=== PATIENT | female | born 2000 | race Hispanic/Latino ===

== ENCOUNTER 2019-05-04 23:10 | Inpatient (IN) | payer MEDICAID, OTHER ==
[~2019-05-04] VITALS: Ht 162.6 cm; Wt 60.3 kg
[2019-05-04 23:27] LABS: BILIRUBIN,URINE Negative (NEGATIVE); COLOR,URINE Yellow (YELLOW); GLUCOSE, URINE (UA) Negative (NEGATIVE); KETONES,URINE Negative (NEGATIVE); LEUKOCYTE ESTERASE ,URINE Large (NEGATIVE); NITRATE,URINE Negative (NEGATIVE); OCCULT BLOOD,URINE Small (NEGATIVE); PH,URINE 6.5 (5.0-8.0); PROTEIN,URINE Negative (NEGATIVE)
[2019-05-04 23:28] LABS: HCG,QUAL RESULT NEGATIVE (NEGATIVE)
[2019-05-04 23:29] LABS: APPEARANCE,URINE SLIGHTLY CLOUDY (CLEAR)
[2019-05-04 23:40] LABS: BACTERIA,URINE Few /HPF (None Seen); WBC,URINE 51-100 /HPF (0-1)
[2019-05-05 00:02] LABS: BASOPHILS % (AUTO) 0.2 % (0.0-5.0); EOSINOPHILS % (AUTO) 0.2 % (0.0-8.0); LYMPHOCYTES % (AUTO) 8.6 % (21.0-51.0); MEAN CORPUSCULAR HGB CONC 33.6 g/dL (32.0-36.0); MEAN CORPUSCULAR VOLUME 83.1 fL (80-100); MONOCYTES % (AUTO) 10.5 % (3.0-13.0); NEUTROPHILS % (AUTO) 80.5 % (40.0-77.0); PLATELET COUNT (AUTO) 191 K/uL (130-400); RED BLOOD CELL COUNT(AUTO) 4.09 MIL/uL (4.00-5.50); RED CELL DISTRIBUTION WIDTH 14.6 % (11.0-15.5); WHITE BLOOD COUNT (AUTO) 13.1 K/uL (4.8-10.8)
[2019-05-05 00:10] LABS: CREATININE 1.1 mg/dL (0.5-1.5); POTASSIUM 3.6 mmol/L (3.5-5.1)
[2019-05-05] MEDS ORDERED: KETOROLAC TROMETHAMINE 15MG/ML ONE (00:12)
[2019-05-05] MEDS ORDERED: MORPHINE SULFATE 4 MG/1ML SYG ONE (00:12)
[2019-05-05 00:15] LABS: ALBUMIN 3.3 g/dL (3.5-5.0); BILIRUBIN,TOTAL 0.6 mg/dL (0.2-1.0); TOTAL PROTEIN, SERUM 7.3 g/dL (6.0-8.3)
[2019-05-05] MEDS ORDERED: SODIUM CHLORIDE 0.9% 1000ML 1,000 ML IV SCH (01:38)
[2019-05-05] MEDS ORDERED: ACETAMINOPHEN EXTRA STRENGTH 500 MG TABLET ONE (01:39)
[2019-05-05] MEDS ORDERED: HYDROMORPHONE 1 MG/1 ML AMP ONE (01:39)
[2019-05-05] MEDS ORDERED: SODIUM CHLORIDE 0.9% 1000ML 1,000 ML IV ONE (01:40)
[2019-05-05] MEDS ORDERED: ACETAMINOPHEN 325 MG TAB PO PRN (01:45)
[2019-05-05] MEDS: PROMETHAZINE HCL 25 MG/ML 1ML AMPULE IVPB SCH ×3 (01:45→17:45)
[2019-05-05] MEDS ORDERED: MORPHINE SULFATE 2 MG/ML 1ML SYG IV PRN (01:45)
[2019-05-05] MEDS ORDERED: CEFTRIAXONE SODIUM 1 GM ONE (03:38)
[2019-05-05 04:50] VITALS: BP 108/71
[2019-05-05 08:00] VITALS: BP 95/49
[2019-05-05] MEDS: FAMOTIDINE/PF 20 MG/2 ML VIAL IV SCH ×2 (08:30→21:06)
[2019-05-05] MEDS: MORPHINE SULFATE 4 MG/1ML SYG IV PRN ×4 (08:30→22:43)
--- NOTE | 2019-05-05 08:37 | NUR ---
C/O OF RT. FLANK PAIN, MEDICATED NOW.
[2019-05-05 09:39] LABS: HEMATOCRIT 30.6 % (36-48); MEAN CORPUSCULAR HEMOGLOBIN 27.7 pg (27.0-33.0); MEAN CORPUSCULAR HGB CONC 33.1 g/dL (32.0-36.0); MEAN CORPUSCULAR VOLUME 83.7 fL (80-100); PLATELET COUNT (AUTO) 168 K/uL (130-400); RED BLOOD CELL COUNT(AUTO) 3.65 MIL/uL (4.00-5.50); RED CELL DISTRIBUTION WIDTH 14.7 % (11.0-15.5); WHITE BLOOD COUNT (AUTO) 11.9 K/uL (4.8-10.8)
[2019-05-05 09:47] LABS: CREATININE 0.9 mg/dL (0.5-1.5); NEUTROPHILS % (AUTO) 79.2 % (40.0-77.0); POTASSIUM 3.9 mmol/L (3.5-5.1)
[2019-05-05 09:48] LABS: BASOPHILS % (AUTO) 0.3 % (0.0-5.0); EOSINOPHILS % (AUTO) 0.3 % (0.0-8.0); LYMPHOCYTES % (AUTO) 6.6 % (21.0-51.0); MONOCYTES % (AUTO) 13.6 % (3.0-13.0)
[2019-05-05 11:49] VITALS: BP 91/51
[2019-05-05] MEDS ORDERED: ONDANSETRON HCL 4 MG/2 ML VIAL IVP PRN (12:00)
[2019-05-05] MEDS: SODIUM CHLORIDE 0.9% 1000ML 1,000 ML IV SCH ×2 (12:21→22:42)
[2019-05-05] MEDS: ACETAMINOPHEN 325 MG TAB PO PRN (16:51)
[2019-05-05 17:02] VITALS: BP 109/45
--- NOTE | 2019-05-05 17:20 | NUR ---
DCP CM met with pt discussed dc plans. Pt is independent, lives at home with mother. Denies any equipments/services. Pt feels safe to go back home, mother able to assist with transportation and needs as necessary. DC plan to home once stable. CM to cont to follow up. Addendum: 05/05/19 at 1721 by MEME VARMA LVN CM Amended: Links added.
[2019-05-05 20:00] VITALS: BP 104/50
[2019-05-06] VITALS: BP 107/70
[2019-05-06] MEDS: PROMETHAZINE HCL 25 MG/ML 1ML AMPULE IVPB SCH ×3 (01:45→17:45)
[2019-05-06] MEDS: CEFTRIAXONE SODIUM 1 GM IV SCH ×2 (02:57→03:00)
[2019-05-06 04:00] VITALS: BP 123/62
[2019-05-06] MEDS: MORPHINE SULFATE 4 MG/1ML SYG IV PRN ×2 (07:44→12:33)
[2019-05-06] MEDS: SODIUM CHLORIDE 0.9% 1000ML 1,000 ML IV SCH ×3 (07:44→19:25)
[2019-05-06 08:00] VITALS: BP 123/66
[2019-05-06] MEDS: FAMOTIDINE/PF 20 MG/2 ML VIAL IV SCH ×2 (10:08→21:22)
[2019-05-06 12:00] VITALS: BP 116/77
[2019-05-06] MEDS: TRAMADOL HCL 50 MG TABLET PO SCH ×2 (13:30→21:22)
[2019-05-06] MEDS ORDERED: HYDROCODONE/ACETAMINOPHEN 5/325 MG TAB PO PRN (13:30)
[2019-05-06] MEDS: LEVOFLOXACIN 500 MG/D5W 100 ML 100 ML IV SCH (14:47)
[2019-05-06 16:00] VITALS: BP 119/63
[2019-05-06] MEDS: ACETAMINOPHEN 325 MG TAB PO PRN (19:23)
[2019-05-06 20:49] VITALS: BP 135/77
[2019-05-07] VITALS (7 sets, daily range): BP systolic 117–133; BP diastolic 63–79
[2019-05-07] MEDS: TRAMADOL HCL 50 MG TABLET PO SCH ×4 (01:30→19:30)
[2019-05-07] MEDS: PROMETHAZINE HCL 25 MG/ML 1ML AMPULE IVPB SCH ×3 (01:45→16:42)
[2019-05-07] MEDS: CEFTRIAXONE SODIUM 1 GM IV SCH (03:22)
[2019-05-07] MEDS: SODIUM CHLORIDE 0.9% 1000ML 1,000 ML IV SCH ×2 (03:26→15:00)
[2019-05-07 04:40] LABS: HEMATOCRIT 29.5 % (36-48); MEAN CORPUSCULAR HEMOGLOBIN 27.7 pg (27.0-33.0); MEAN CORPUSCULAR HGB CONC 33.7 g/dL (32.0-36.0); MEAN CORPUSCULAR VOLUME 82.1 fL (80-100); PLATELET COUNT (AUTO) 195 K/uL (130-400); RED BLOOD CELL COUNT(AUTO) 3.59 MIL/uL (4.00-5.50); RED CELL DISTRIBUTION WIDTH 14.7 % (11.0-15.5); WHITE BLOOD COUNT (AUTO) 8.8 K/uL (4.8-10.8)
[2019-05-07 04:46] LABS: CREATININE 0.8 mg/dL (0.5-1.5); POTASSIUM 3.5 mmol/L (3.5-5.1)
[2019-05-07] MEDS: FAMOTIDINE/PF 20 MG/2 ML VIAL IV SCH ×2 (09:56→21:19)
[2019-05-07] MEDS: LEVOFLOXACIN 500 MG/D5W 100 ML 100 ML IV SCH (12:58)
[2019-05-08] MEDS: SODIUM CHLORIDE 0.9% 1000ML 1,000 ML IV SCH (01:28)
[2019-05-08] MEDS: TRAMADOL HCL 50 MG TABLET PO SCH ×2 (01:30→06:44)
[2019-05-08] MEDS: PROMETHAZINE HCL 25 MG/ML 1ML AMPULE IVPB SCH ×2 (01:36→08:53)
[2019-05-08] MEDS: CEFTRIAXONE SODIUM 1 GM IV SCH (02:59)
[2019-05-08 04:28] VITALS: BP 122/62
[2019-05-08 05:16] LABS: BASOPHILS % (AUTO) 0.5 % (0.0-5.0); EOSINOPHILS % (AUTO) 4.2 % (0.0-8.0); HEMATOCRIT 29.9 % (36-48); LYMPHOCYTES % (AUTO) 27.7 % (21.0-51.0); MEAN CORPUSCULAR HEMOGLOBIN 28.1 pg (27.0-33.0); MEAN CORPUSCULAR VOLUME 82.5 fL (80-100); MONOCYTES % (AUTO) 13.2 % (3.0-13.0); NEUTROPHILS % (AUTO) 54.4 % (40.0-77.0); PLATELET COUNT (AUTO) 218 K/uL (130-400); RED BLOOD CELL COUNT(AUTO) 3.62 MIL/uL (4.00-5.50); RED CELL DISTRIBUTION WIDTH 14.5 % (11.0-15.5); WHITE BLOOD COUNT (AUTO) 7.3 K/uL (4.8-10.8)
[2019-05-08 05:25] LABS: CREATININE 0.7 mg/dL (0.5-1.5); POTASSIUM 3.6 mmol/L (3.5-5.1)
[2019-05-08 07:30] VITALS: BP 111/60
[2019-05-08] MEDS ORDERED: TRAMADOL HCL 50 MG TABLET PO PRN (07:45)
[2019-05-08] MEDS ORDERED: LEVO500T2 PO ×3 (07:49→07:56)
[2019-05-08] MEDS: FAMOTIDINE/PF 20 MG/2 ML VIAL IV SCH (08:50)
--- NOTE | 2019-05-08 10:03 | NUR ---
Discharge teaching completed in the room with pt. Emphasis on dx UTI and pyelonephritis, s/s to monitor for, when to seek emergency care vs dial 911. Attempted to make follow up appts with Dr. Putnam but no answer at the office. Pt rec'd call pb while discharge teaching was in progress, and appt was set for 05/11 @ 8:15 am. Written rx for Levaquin given to pt. Educated regarding purpose, route, frequency, and duration of treatment, as well as side effects and adverse effects. PIV removed, tip intact. Dressed with sterile 2x2 and band aid after hemostasis. Pt escorted to [facility] by [facility] staff for transport home via private vehicle. Pt in stable condition at time of discharge.
[2019-05-09] MEDS ORDERED: LEVOFLOXACIN 500 MG PO SCH (09:00)
== END 2019-05-08 10:05 | disposition home or self-care (01) | DRG 690 ==
LOC: EDH 23:10 → EDHIP 23:11 → 3BH 05-05 01:37
PROVIDERS: ADMIT Internal Medicine; ATTEND Internal Medicine
DX: N13.6 Pyonephrosis (principal); K82.4 Cholesterolosis of gallbladder
CPT/HCPCS: 36415; 71046; 76705; 80048; 80053; 81001; 81025; 83690; 85025; 85027; 87040; 87088; G0378; J0696; J1170; J1885; J1956; J2270; J2405; J3490; J7030

== ENCOUNTER 2020-05-25 19:54 | Inpatient (IN) | payer MEDICAID ==
[~2020-05-25] VITALS: Ht 162.6 cm; Wt 73.5 kg
[~2020-05-25 19:54] MED LIST: LEVO500T2 PO
[2020-05-25] MEDS ORDERED: LACTATED RINGERS 1000ML 1,000 ML IV PRN (20:50)
[2020-05-25] MEDS ORDERED: OXYTOCIN-LR 20 UNITS/1000 ML 1,000 ML IV SCH (21:00)
[2020-05-25 21:17] LABS: HEMATOCRIT 33.7 % (36-48); MEAN CORPUSCULAR HEMOGLOBIN 27.4 pg (27.0-33.0); MEAN CORPUSCULAR HGB CONC 33.2 g/dL (32.0-36.0); MEAN CORPUSCULAR VOLUME 82.4 fL (80-100); RED BLOOD CELL COUNT(AUTO) 4.09 MIL/uL (4.00-5.50); RED CELL DISTRIBUTION WIDTH 14.3 % (11.0-15.5); WHITE BLOOD COUNT (AUTO) 10.7 K/uL (4.8-10.8)
[2020-05-25 21:27] LABS: APPEARANCE,URINE Cloudy (CLEAR); BILIRUBIN,URINE Negative (NEGATIVE); COLOR,URINE Yellow (YELLOW); GLUCOSE, URINE (UA) Negative (NEGATIVE); KETONES,URINE Trace mg/dL (NEGATIVE); LEUKOCYTE ESTERASE ,URINE Large (NEGATIVE); NITRATE,URINE Negative (NEGATIVE); OCCULT BLOOD,URINE Negative (NEGATIVE); PH,URINE 6.5 (5.0-8.0); PROTEIN,URINE Trace mg/dL (NEGATIVE)
[2020-05-25 21:40] LABS: BACTERIA,URINE Many /HPF (None Seen); MUCUS,URINE Few LPF (None Seen); RBC,URINE 0-1 /HPF (0-1); SQUAMOUS EPITHELIAL CELL,UR 0-2 /HPF (0-2)
[2020-05-26] MEDS ORDERED: LACTATED RINGERS 500 ML 500 ML IV PRN (10:00)
[2020-05-26] MEDS ORDERED: EPHEDRINE SULFATE 50 MG/ML AMPULE IVP PRN (10:00)
[2020-05-26] MEDS ORDERED: DINOPROSTONE 10 MG VAGINAL SUPP VG SCH (10:00)
[2020-05-26] MEDS ORDERED: ROPIVACAINE 0.2% 100ML VIAL 100 ML EP SCH (10:00)
[2020-05-26] MEDS ORDERED: NALOXONE HCL 0.4 MG/1 ML ML IV PRN (10:00)
[2020-05-26] MEDS: MEPERIDINE-PF 50 MG/ML SYG IVP PRN (16:46)
[2020-05-26] MEDS: PROMETHAZINE HCL 25 MG/ML 1ML AMPULE IM PRN (16:46)
[2020-05-27] MEDS ORDERED: OXYTOCIN-LR 20 UNITS/1000 ML 1,000 ML IV ONE ×2 (00:26→11:10)
[2020-05-27] MEDS ORDERED: OXYTOCIN 10 USP UNITS/ML 20 UNIT in LACTATED RINGERS 1000ML 1,000 ML IV SCH (00:30)
[2020-05-27] MEDS: PROMETHAZINE HCL 25 MG/ML 1ML AMPULE IM PRN (03:10)
[2020-05-27] MEDS: MEPERIDINE-PF 50 MG/ML SYG IVP PRN (03:11)
[2020-05-27] MEDS ORDERED: FENTANYL CITRATE PF 50 MCG/1 ML 2ML VIAL ONE (07:50)
[2020-05-27] MEDS ORDERED: CARBOPROST TROMETHAMINE 250 MCG/ML AMP IM ONE (10:43)
[2020-05-27] MEDS ORDERED: MISOPROSTOL 200 MCG TABLET ONE (10:43)
[2020-05-27] MEDS ORDERED: MISOPROSTOL 200 MCG TABLET VG SCH (10:45)
[2020-05-27] MEDS ORDERED: CARBOPROST TROMETHAMINE 250 MCG/ML AMP IM SCH (10:45)
[2020-05-27 11:50] LABS: BASOPHILS % (AUTO) 0.3 % (0.0-5.0); EOSINOPHILS % (AUTO) 0.1 % (0.0-8.0); HEMATOCRIT 29.1 % (36-48); LYMPHOCYTES % (AUTO) 8.3 % (21.0-51.0); MEAN CORPUSCULAR HGB CONC 30.9 g/dL (32.0-36.0); MEAN CORPUSCULAR VOLUME 87.4 fL (80-100); MONOCYTES % (AUTO) 7.5 % (3.0-13.0); NEUTROPHILS % (AUTO) 82.6 % (40.0-77.0); PLATELET COUNT (AUTO) 276 K/uL (130-400); RED BLOOD CELL COUNT(AUTO) 3.33 MIL/uL (4.00-5.50); RED CELL DISTRIBUTION WIDTH 14.6 % (11.0-15.5); WHITE BLOOD COUNT (AUTO) 17.4 K/uL (4.8-10.8)
[2020-05-27] MEDS ORDERED: IBUPROFEN 600 MG TABLET ONE (12:42)
[2020-05-27] MEDS ORDERED: AMMONIA 1 EA AMP IH ONE (13:11)
[2020-05-27 13:35] VITALS: BP 128/80
[2020-05-27] MEDS ORDERED: PNV1TABL17 PO (13:53)
[2020-05-27] MEDS ORDERED: ACETAMINOPHEN-CODEINE 300/30MG TAB PO PRN (14:00)
[2020-05-27] MEDS ORDERED: BENZOCAINE/LANOLIN/ALOE VERA 60 ML AEROSOL TP PRN (14:00)
[2020-05-27] MEDS ORDERED: DIPH,PERTUSS(ACELL),TET VAC/PF 0.5 ML VIAL IM PRN (14:00)
[2020-05-27] MEDS ORDERED: WITCH HAZEL 1 PAD TP PRN (14:00)
[2020-05-27] MEDS ORDERED: ACETAMINOPHEN 325 MG TAB PO PRN (14:00)
--- NOTE | 2020-05-27 14:00 | NUR ---
ASSISTED PATIENT TO RESTROOM. PATIENT WAS ABLE TO VOID. INSTRUCTED AND ASSISTED WITH PERICARE. PATIENT STATED SHE FELT "A LITTLE DIZZY" WHEN AMBULATING BACK TO BED. ADVISED PATIENT TO CALL FOR ASSISTANCE WHEN NEEDING TO AMBULATE.
--- NOTE | 2020-05-27 14:40 | NUR ---
PATIENT WAS AMBULATING BACK FROM THE RESTROOM WITH SIGNIFICANT OTHER'S ASSISTANCE. PATIENT STATED THERE NO CHANGE IN DIZZINESS AND PREFERRED SIGNIFICANT OTHER'S ASSISTANCE. INFORMED PATIENT ON INJURY PREVENTION AND IMPORTANCE ON CALLING WHEN NEEDING ASSISTANCE TO AMBULATE. EDUCATED PATIENT ON EMERGENCY CALL CORDS LOCATED IN THE RESTROOM. PATIENT VERBALIZED UNDERSTANDING AND STATED SHE FEELS OKAY TO AMBULATE. CALL LIGHT LEFT IN REACH.
[2020-05-27 16:30] VITALS: BP 127/87
[2020-05-27 19:30] VITALS: BP 134/75
[2020-05-27] MEDS: DOCUSATE SODIUM 100 MG CAP PO SCH (20:56)
[2020-05-27 21:07] LABS: HEPATITIS Bs ANTIGEN SCREEN P Negative (Negative)
[2020-05-27] MEDS: IBUPROFEN 600 MG TABLET PO PRN (23:21)
[2020-05-27 23:25] VITALS: BP 127/72
[2020-05-28] VITALS (12 sets, daily range): BP systolic 113–134; BP diastolic 58–80
[2020-05-28 06:53] LABS: MEAN CORPUSCULAR HEMOGLOBIN 27.5 pg (27.0-33.0); MEAN CORPUSCULAR HGB CONC 32.6 g/dL (32.0-36.0); MEAN CORPUSCULAR VOLUME 84.3 fL (80-100); PLATELET COUNT (AUTO) 187 K/uL (130-400); RED BLOOD CELL COUNT(AUTO) 2.04 MIL/uL (4.00-5.50); RED CELL DISTRIBUTION WIDTH 14.7 % (11.0-15.5); WHITE BLOOD COUNT (AUTO) 11.2 K/uL (4.8-10.8)
[2020-05-28 07:02] LABS: HEMATOCRIT 17.2 % (36-48)
--- NOTE | 2020-05-28 07:05 | NUR ---
Communication: Dr. Beebe called via telephone informed of the CBC RESULT HEMOGLOBIN OF 5.6, HEMATOCRIT OF 17.2 and patient was tachycardic pulse rate of 115, 113, 122. Received orders to transfuse 2 units PRBC
[2020-05-28] MEDS ORDERED: SODIUM CHLORIDE 0.9% 1000ML 1,000 ML IV ONE (07:15)
[2020-05-28] MEDS: IBUPROFEN 600 MG TABLET PO PRN ×2 (09:32→17:35)
[2020-05-28] MEDS: DOCUSATE SODIUM 100 MG CAP PO SCH (09:32)
--- NOTE | 2020-05-28 10:06 | NUR ---
1ST UNIT of blood started infusing, witnessed by Shanelle Hammond RN Addendum: 05/28/20 at 1010 by CHRISTY VILCHIS RN Amended: Links added.
--- NOTE | 2020-05-28 13:15 | NUR ---
1ST UNIT of blood transfused, no reactions noted. Addendum: 05/28/20 at 1341 by CHRISTY VILCHIS RN Amended: Links added.
--- NOTE | 2020-05-28 13:46 | NUR ---
2ND UNIT of blood started infusing, witnessed by Shanelle Hammond RN Addendum: 05/28/20 at 1349 by CHRISTY VILCHIS RN Amended: Links added.
--- NOTE | 2020-05-28 16:30 | NUR ---
2ND UNIT of blood completed, no reactions noted. Addendum: 05/28/20 at 1653 by CHRISTY VILCHIS RN Amended: Links added.
[2020-05-28 17:11] LABS: MEAN CORPUSCULAR HEMOGLOBIN 27.7 pg (27.0-33.0); MEAN CORPUSCULAR HGB CONC 33.3 g/dL (32.0-36.0); RED BLOOD CELL COUNT(AUTO) 2.89 MIL/uL (4.00-5.50); RED CELL DISTRIBUTION WIDTH 14.9 % (11.0-15.5)
--- NOTE | 2020-05-28 18:00 | NUR ---
pt is discharged, verbal and written discharge instructions given, pls refer to exitcare, informed of the follow up appointment, prescription given. informed to call the doctor for further concerns. pt voiced understanding to all things discussed. Addendum: 05/28/20 at 1813 by CHRISTY VILCHIS RN Amended: Links added.
--- NOTE | 2020-05-28 18:35 | NUR ---
pt is dismissed with baby in stable condition, brought to private car via wheelchair by Maddy olmos Addendum: 05/28/20 at 1839 by CHRISTY VILCHIS RN Amended: Links added.
== END 2020-05-28 18:35 | disposition home or self-care (01) | DRG 560 ==
LOC: EDH 19:54 → LDH 19:55 → OBSVTOIN 19:55 → LDH 20:15 → WSH 05-27 13:30
PROVIDERS: ADMIT Obstetrics & Gynecology; ATTEND Obstetrics & Gynecology
PROC: 10E0XZZ Delivery of Products of Conception, External Approach (ICD-10-PCS; principal; 2020-05-27)
PROC: 0KQM0ZZ Repair Perineum Muscle, Open Approach (ICD-10-PCS; 2020-05-27)
PROC: 30233N1 Transfusion of Nonautologous Red Blood Cells into Peripheral Vein, Percutaneous Approach (ICD-10-PCS; 2020-05-28)
PROC: 3E0234Z Introduction of Serum, Toxoid and Vaccine into Muscle, Percutaneous Approach (ICD-10-PCS; 2020-05-28)
PROC: 3E0R3BZ Introduction of Anesthetic Agent into Spinal Canal, Percutaneous Approach (ICD-10-PCS; 2020-05-28)
PROC: 00HU33Z Insertion of Infusion Device into Spinal Canal, Percutaneous Approach (ICD-10-PCS; 2020-05-28)
DX: O70.1 Second degree perineal laceration during delivery (principal); Z3A.39 39 weeks gestation of pregnancy; Z37.0 Single live birth; O72.1 Other immediate postpartum hemorrhage; Z23 Encounter for immunization
CPT/HCPCS: 36415; 81001; 85025; 85027; 86592; 86850; 86900; 86901; 86923; 87088; 87340; 90715; 93005; A4314; A4606; G0378; J2175; J2550; J2590; J2795; J3010; J3490; J7120; P9016